=== PATIENT | female | born 1990 | race Caucasian/White ===

== ENCOUNTER 2020-10-20 21:26 | Emergency (ER) | payer OTHER ==
[2020-10-20 22:11] LABS: HEMOGLOBIN 13.9 gm/dl (12.3-15.3); RED BLOOD COUNT 4.06 M/UL (4.00-5.10); WHITE BLOOD COUNT 8.3 K/UL (4.5-11.0)
[2020-10-20 22:32] LABS: BUN/CREATININE RATIO 8 (0-10)
[2020-10-21] MEDS ORDERED: LASIX40 MG PO (01:15)
[2020-10-21] MEDS ORDERED: CEPHALEXIN500 M1 PO (01:15)
== END 2020-10-21 01:25 | disposition home or self-care (01) ==
LOC: ER1 21:26
PROVIDERS: Emergency Medicine
DX: R06.02 Shortness of breath (principal); R60.0 Localized edema; N39.0 Urinary tract infection, site not specified; F17.200 Nicotine dependence, unspecified, uncomplicated
CPT/HCPCS: 71045; 80053; 81001; 83690; 83880; 84484; 84703; 85025; 85610; 85730; 99284

== ENCOUNTER 2020-12-10 21:56 | Inpatient (IN) | payer OTHER ==
[~2020-12-10] VITALS: Ht 167.6 cm; Wt 255.1 kg
[~2020-12-10 21:56] MED LIST: CEPHALEXIN500 M1 PO; LASIX40 MG PO
[2020-12-10 22:41] LABS: HEMOGLOBIN 11.2 gm/dl (12.3-15.3); RED BLOOD COUNT 3.55 M/UL (4.00-5.10); WHITE BLOOD COUNT 6.5 K/UL (4.5-11.0)
[2020-12-10 23:03] LABS: BUN/CREATININE RATIO 13 (0-10)
[2020-12-11] MEDS ORDERED: FOLIC ACID 1 MG1 MG PO (03:44)
[2020-12-11] MEDS ORDERED: LEVOTHYROXINE50 MC1 PO (03:44)
[2020-12-11] MEDS ORDERED: PROTONIX 40 MG40 MG PO (03:45)
[2020-12-11] MEDS ORDERED: SUCRALFATE1 GM PO (03:45)
[2020-12-11] MEDS ORDERED: METOPROLOL TART25 MG PO (03:46)
--- NOTE | 2020-12-11 16:05 | NUR ---
CALLED FOR [facility] ON 12/11/20 @ 1600
[2020-12-11 18:21] LABS: BUN/CREATININE RATIO 10 (0-10)
[2020-12-12 06:01] LABS: HEMOGLOBIN 10.6 gm/dl (12.3-15.3); RED BLOOD COUNT 3.58 M/UL (4.00-5.10); WHITE BLOOD COUNT 5.6 K/UL (4.5-11.0)
[2020-12-12 06:15] LABS: BUN/CREATININE RATIO 9 (0-10)
[2020-12-13 03:18] LABS: HEMOGLOBIN 10.1 gm/dl (12.3-15.3); RED BLOOD COUNT 3.34 M/UL (4.00-5.10); WHITE BLOOD COUNT 6.5 K/UL (4.5-11.0)
[2020-12-13 03:37] LABS: BUN/CREATININE RATIO 9 (0-10)
[2020-12-14 06:48] LABS: HEMOGLOBIN 10.4 gm/dl (12.3-15.3); RED BLOOD COUNT 3.55 M/UL (4.00-5.10)
[2020-12-14 06:50] LABS: WHITE BLOOD COUNT 4.7 K/UL (4.5-11.0)
--- NOTE | 2020-12-14 07:23 | NUR ---
PT. HAD IV DC ON CALENDER LET OFF HELPER. AREA IS RED AND PAINFUL. WARM COMPRESS APPLIED. WILL CONTINUE TO MONITOR.
[2020-12-14 07:25] LABS: BUN/CREATININE RATIO 10 (0-10)
[2020-12-15 07:57] LABS: HEMOGLOBIN 10.8 gm/dl (12.3-15.3); RED BLOOD COUNT 3.55 M/UL (4.00-5.10); WHITE BLOOD COUNT 4.7 K/UL (4.5-11.0)
[2020-12-15 08:25] LABS: BUN/CREATININE RATIO 8 (0-10)
[2020-12-15] MEDS ORDERED: ACETAZOLAMIDE250 MG PO (21:17)
[2020-12-15] MEDS ORDERED: FUROSEMIDE40 MG PO (21:17)
[2020-12-15] MEDS ORDERED: COMBIVENT RESPIM4 GM INH (21:19)
--- NOTE | 2020-12-15 23:09 | NUR ---
CALLED [facility] @2240 WAS ADVISED NEEDED TO CALL [facility] FIRST FOR APPROVAL, @2245 CALLED EMS AND FAXED [facility] FORM,RECIEVED CALL FROM [facility] @2301 DONT HAVE ENOUGH STAFF TONIGHT TO SAFELY TRANSPORT THIS PT, AND DONT HAVE ENOUGH HELP WHEN ARRIVING TO [facility] TO SAFELY TRANSPORT PT. NOT REFUSING THIS PT WILL TRANSPORTATION IN THE AM SAFELY IF STILL NEEDED. GAVE APPROVAL FOR [facility] TO GET IF PT. CALLED [facility] AND WAS TOLD THEY ARE ALSO SHORT STAFF AND UNABLE TO SAFELY TRANSPORT THIS PT TONIGHT. 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
== END 2020-12-16 12:52 | disposition home or self-care (01) | DRG 291 ==
LOC: ER1 21:56 → CDU 12-11 01:09 → MED SURG 4 12-11 01:09 → CCU 12-11 01:09 → MED SURG 4 12-12 15:25
PROVIDERS: Family Medicine; Internal Medicine; Internal Medicine Pulmonary Disease; ADMIT Internal Medicine
PROC: B24BZZ4 Ultrasonography of Heart with Aorta, Transesophageal (ICD-10-PCS; principal; 2020-12-11)
PROC: 5A09457 Assistance with Respiratory Ventilation, 24-96 Consecutive Hours, Continuous Positive Airway Pressure (ICD-10-PCS; 2020-12-11)
DX: I11.0 Hypertensive heart disease with heart failure (principal); J96.21 Acute and chronic respiratory failure with hypoxia; G93.41 Metabolic encephalopathy; J96.22 Acute and chronic respiratory failure with hypercapnia; E66.2 Morbid (severe) obesity with alveolar hypoventilation; E87.4 Mixed disorder of acid-base balance; Z68.45 Body mass index [BMI] 70 or greater, adult; Z20.822 Contact with and (suspected) exposure to COVID-19; I50.813 Acute on chronic right heart failure; I07.1 Rheumatic tricuspid insufficiency; I50.33 Acute on chronic diastolic (congestive) heart failure; D64.9 Anemia, unspecified; E03.9 Hypothyroidism, unspecified; F17.210 Nicotine dependence, cigarettes, uncomplicated; Z84.89 Family history of other specified conditions; Z88.8 Allergy status to other drugs, medicaments and biological substances
CPT/HCPCS: ECHO; 36415; 36600; 51702; 71045; 80048; 80053; 81001; 82024; 82436; 82533; 82550; 82553; 82803; 83735; 83880; 84100; 84133; 84300; 84439; 84443; 84484; 84702; 85025; 85027; 93005; 93306; 93970; 94640; 94660; 94760; 97110; 97110-GP-CQ; 97162; 97166; 99285; J1120; J1650; J1940; Q9957; U0002

== ENCOUNTER → 2021-02-24 | Outpatient (CLI) | payer OTHER ==
[~2021-02-24] MED LIST changes: +ACETAZOLAMIDE250 MG PO; +COMBIVENT RESPIM4 GM INH; +FOLIC ACID 1 MG1 MG PO; +FUROSEMIDE40 MG PO; +LEVOTHYROXINE50 MC1 PO; +METOPROLOL TART25 MG PO; +PROTONIX 40 MG40 MG PO; +SUCRALFATE1 GM PO
== END ==
LOC: HEART 5 11:34
DX: J96.92 Respiratory failure, unspecified with hypercapnia (principal); Z99.11 Dependence on respirator [ventilator] status
CPT/HCPCS: 36600; 82803; 94060; 94729